=== PATIENT | male | born 1975 | race Caucasian/White ===

== ENCOUNTER 2017-01-07 12:15 | Emergency (ER) | payer OTHER ==
[2017-01-07] MEDS ORDERED: KETOROLAC 30 MG/ML 1 ML VIAL IM STA (12:57)
[2017-01-07] MEDS ORDERED: DIAZEPAM 5 MG/ML 2 ML SYRINGE IM ONE (12:57)
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
[2017-01-07 14:35] VITALS: BP 138/84; PULSE 86; RESP 20; TEMP 97.4
== END 2017-01-07 14:35 | disposition home or self-care (01) ==
LOC: EC 12:15
DX: S06.0X0A Concussion without loss of consciousness, initial encounter (principal); M54.2 Cervicalgia; M25.512 Pain in left shoulder; M54.5 Low back pain; M25.562 Pain in left knee; E78.5 Hyperlipidemia, unspecified; F17.200 Nicotine dependence, unspecified, uncomplicated; Z79.891 Long term (current) use of opiate analgesic; Z79.899 Other long term (current) drug therapy; Z88.5 Allergy status to narcotic agent; V43.52XA Car driver injured in collision with other type car in traffic accident, initial encounter; Y92.410 Unspecified street and highway as the place of occurrence of the external cause
CPT/HCPCS: 99284; 96372 ×2; 72125; 70450; J3360; J1885

== ENCOUNTER 2018-02-15 18:48 | Emergency (ER) | payer OTHER ==
[2018-02-15 18:53] VITALS: BP 140/81; PULSE 99; RESP 18; TEMP 98.5
[2018-02-15] MEDS ORDERED: KETOROLAC 30 MG/ML 1 ML VIAL IM STA (19:13)
--- NOTE | 2018-02-15 19:22 | ED ---
Upper Extremity HPI - General Chief Complaint: Extremity Injury, Upper Stated Complaint: arm swelling Time Seen by Provider: 02/15/18 19:05 Source: patient Mode of arrival: ambulatory Limitations: no limitations - History of Present Illness Initial Comments: This a 42-year-old male right hand dominant with past medical history of osteoporosis who presents today for chief complaint of right posterior forearm pain 1 week. Patient states that he spent a weekend power washing his new home about a week ago, a day or 2 after he noticed pain in his right distal forearm posterior side and a lump. He thought it might be from overusing it. He continue to take his daily tramadol that he takes for her osteoarthritis for pain management. He stated this helped minimally. He felt like he heard crepitus in his wrist with pronation and supination at the site of pain. Patient states he does not think it's broken because he did not experience any trauma or falls. She denies numbness, tingling, loss sensation, paresthesias, muscle weakness, decreased range of motion, erythema, warmth. Patient does admit to tenderness to palpation of the lump. Patient denies experiencing this before. Remainder ROS (-). Upon arrival VS stable. - Related Data Home Medications Medication Instructions Recorded Confirmed Atorvastatin [Lipitor] 20 mg PO DAILY 01/07/17 02/15/18 Melatonin 3 mg PO HS 01/07/17 02/15/18 traMADol HCL [Ultram] 50 mg PO DAILY 01/07/17 02/15/18 traZODone HCL 50 mg PO HS PRN 01/07/17 02/15/18 Previous Rx's Medication Instructions Recorded HYDROcodone/APAP 5-325MG [[place] 1 tab PO Q6HR PRN #12 tab 01/07/17 5-325] Ibuprofen [Motrin] 600 mg PO Q8HR PRN #24 tab 01/07/17 Allergies Allergy/AdvReac Type Severity Reaction Status Date / Time meperidine [From Demerol] Allergy Unknown Verified 02/15/18 18:53 morphine Allergy Unknown Verified 02/15/18 18:53 Review of Systems ROS Statement: Those systems with pertinent positive or pertinent negative responses have been documented in the HPI. ROS Other: All systems not noted in ROS Statement are negative. Constitutional: Denies: fever, chills Respiratory: Denies: cough, dyspnea, wheezes, hemoptysis Cardiovascular: Denies: chest pain, palpitations Gastrointestinal: Denies: abdominal pain, nausea, vomiting Genitourinary: Denies: urgency, dysuria Musculoskeletal: Reports: as per HPI, myalgia. Denies: back pain Skin: Reports: as per HPI, other (palpable mass posterior distal forearm). Denies: rash, lesions Neurological: Denies: weakness, numbness, paresthesias, confusion, abnormal gait Past Medical History Past Medical History: Hyperlipidemia History of Any Multi-Drug Resistant Organisms: None Reported Additional Past Surgical History / Comment(s): R leg surgery 20yrs ago, carpal tunel surgery on bilat wrist Past Psychological History: No Psychological Hx Reported Smoking Status: Current every day smoker Past Alcohol Use History: Occasional Past Drug Use History: None Reported General Exam - General Exam Comments Initial Comments: General: The patient is awake and alert, in no distress, and does not appear acutely ill. Eye: Pupils are equal, round and reactive to light, extra-ocular movements are intact. No nystagmus. There is normal conjunctiva bilaterally. No signs of icterus. Ears, nose, mouth and throat: There are moist mucous membranes and no oral lesions. Cardiovascular: There is a regular rate and rhythm. No murmur, rub or gallop is appreciated. Respiratory: Lungs are clear to auscultation, respirations are non-labored, breath sounds are equal. No wheezes, stridor, rales, or rhonchi. Musculoskeletal: Raised mass on the posterior aspect of the distal right forearm, more lateral in position. Mild tenderness to palpation. Mass dense and compressible, not fluctuant. No erythema or warmth to palpation. Full ROM at the wrist with flexion, extension, supination, and pronation. (+) stacia. Strength 5/5 at the wrists b/l. Sensation intact of the UE and hands b/l. Radial pulses equal bilaterally 2+. Capillary refill <2seconds. Neurological: A&O x 3. CN II-XII intact, There are no obvious motor or sensory deficits. Coordination appears grossly intact. Speech is normal. Skin: Skin is warm and dry and no rashes or lesions are noted. Psychiatric: Cooperative, appropriate mood & affect, normal judgment. Limitations: no limitations Course Vital Signs 02/15/18 18:50 Temperature 98.5 F Pulse Rate 99 Respiratory 18 Rate Blood Pressure 140/81 O2 Sat by Pulse 97 Oximetry Medical Decision Making - Medical Decision Making 42-year-old male with chief complaint of right forearm lump concerning for possible underlying cyst or tendinitis. Lump is not along the deep venous system of the upper kidney. Low suspicion for deep vein thrombus for this time. U/S of the mass was obtained revealing complex mass that is most likely a complex cyst in the area of the palpable lump. There is no evidence of infection, no warmth or erythema of the overlying skin or palpable mass. Patient given 30 mg IM injection of Toradol for pain management. Patient states that this helped immensely, taking the pain away nearly 100%. At this time we feel that the mass is most likely a cyst. Case is discussed in detail with Dr. Arboleda who agrees the impression. We feel patient benefit from orthopedic surgery follow-up for further evaluation and treatment, including possible drainage. Patient was instructed to take [id number] ibuprofen & Tylenol for pain management as needed as well as warm compresses applied at the location of lump. Patient agreed plan, verbalizes and worsening. Patient denied any questions. This time feel patient is stable for discharge. Disposition Clinical Impression: Cyst Narrative: cyst to posterior right forearm Disposition: HOME SELF-CARE Condition: Good Instructions: Ganglion Cysts (ED) Additional Instructions: Please use over the counter medication as discussed. Please follow-up with orthopedics in the next 3-4 days. Please return to emergency room if the symptoms increase or worsen or for any other concerns. Is patient prescribed a controlled substance at d/c from ED?: No Referrals: Ada Pierre DO [Primary Care Provider] - 1-2 days Blsa Tsai MD [STAFF PHYSICIAN] - 1-2 days Time of Disposition: 20:19
--- NOTE | 2018-02-15 19:58 | US ---
EXAMINATION TYPE: US extremity nonvasc mass RT DATE OF EXAM: 02/15/2018 COMPARISON: NONE CLINICAL HISTORY: right posterior forarm pain/lump. Right forearm lump. Complex area seen measuring .7 x .9cm right forearm superior to wrist. IMPRESSION: There is a complex mass that is probably complex cyst in the area of concern in the missy on of the palpable lump. Clinical significance is not clear. This appears elongated on the longitudin al view and could be an hematoma. This is seen proximal to the wrist joint on the dorsum of the forea rm.
== END 2018-02-15 20:30 | disposition home or self-care (01) ==
LOC: EC 18:48
DX: M85.631 Other cyst of bone, right forearm (principal); E78.5 Hyperlipidemia, unspecified; F17.200 Nicotine dependence, unspecified, uncomplicated; Z79.899 Other long term (current) drug therapy; Z88.5 Allergy status to narcotic agent
CPT/HCPCS: 76882; 99283; 96372; J1885